=== PATIENT | male | born 2000 | race Hispanic/Latino ===

== ENCOUNTER 2020-07-24 17:24 | Inpatient (IN) | payer OTHER ==
[~2020-07-24] VITALS: Ht 167.6 cm; Wt 70.1 kg
[2020-07-24 19:14] LABS: HEMATOCRIT 47.7 % (42.0-52.0); HEMOGLOBIN 15.6 g/dl (13.5-17.5); MEAN CORPUSCULAR HEMOGLOBIN 30.4 pg (27.0-33.0); MEAN CORPUSCULAR HGB CONC 32.7 g/dl (32.0-36.5); PLATELET COUNT, AUTOMATED 346 10^3/uL (150-450); RED BLOOD COUNT 5.13 10^6/uL (4.30-6.10); WHITE BLOOD COUNT 7.2 10^3/uL (4.0-10.0)
[2020-07-24] MEDS ORDERED: LORazepam 1 MG TAB PO STA (19:29)
[2020-07-24 19:50] LABS: ACETAMINOPHEN LEVEL < 2.0 UG/ML (10.0-30.0); ALBUMIN 4.6 GM/DL (3.2-5.2); ALT/SGPT 48 U/L (12-78); AMPHETAMINES LEVEL URINE POSITIVE (NEGATIVE); BARBITURATES URINE NEGATIVE (NEGATIVE); BENZODIAZEPINES URINE NEGATIVE (NEGATIVE); BILIRUBIN,DIRECT 0.2 MG/DL (0.0-0.2); BILIRUBIN,TOTAL 0.6 MG/DL (0.2-1.0); BLOOD UREA NITROGEN 14 MG/DL (7-18); CALCIUM LEVEL 9.6 MG/DL (8.5-10.1); CANNABINOIDS URINE POSITIVE (NEGATIVE); CARBON DIOXIDE LEVEL 25 MEQ/L (21-32); CHLORIDE LEVEL 104 MEQ/L (98-107); COCAINE METABOLITE URINE NEGATIVE (NEGATIVE); CREATININE FOR GFR 0.98 MG/DL (0.70-1.30); ETHYL ALCOHOL (ETHANOL) < 0.003 % (0.000-0.010); GLUCOSE, FASTING 88 MG/DL (70-100); METHADONE URINE NEGATIVE (NEGATIVE); OPIATES URINE NEGATIVE (NEGATIVE); PHENCYCLIDINE URINE NEGATIVE (NEGATIVE); POTASSIUM SERUM 4.3 MEQ/L (3.5-5.1); SALICYLATE LEVEL 2.1 MG/DL (5.0-30.0); SODIUM LEVEL 138 MEQ/L (136-145)
--- NOTE | 2020-07-24 20:49 | REPVR ---
PROCEDURE INFORMATION: Exam: CT Head Without Contrast Exam date and time: 07/24/2020 8:25 PM Age: 19 years old Clinical indication: Psychosis or psychotic disorder; Unspecified; Additional info: New onset psychosis TECHNIQUE: Imaging protocol: Computed tomography of the head without contrast. Axial and coronal reformatted images were created and reviewed. Radiation optimization: All CT scans at this facility use at least one of these dose optimization techniques: automated exposure control; mA and/or kV adjustment per patient size (includes targeted exams where dose is matched to clinical indication); or iterative reconstruction. COMPARISON: No relevant prior studies available. FINDINGS: Brain: No CT evidence of acute intracranial hemorrhage or acute territorial infarction. No significant mass effect or midline shift. Basal cisterns patent. Cerebral ventricles: Normal in size and configuration. Bones/joints: No acute osseous abnormality. Paranasal sinuses: Unremarkable. No fluid levels. Mastoid air cells: Grossly unremarkable. Soft tissues: Grossly unremarkable. IMPRESSION: No CT evidence of acute intracranial pathology. Electronically signed by: Sixto Angeles On 07/24/2020 20:50:23 PM
--- NOTE | 2020-07-25 07:30 | ECGEPIP ---
[facility] - ED Test Date: 2020-07-24 Pat Name: Carlyle Aguilar Department: Room: - Gender: Male Advice Clerk: VALERIEV : 2000 Requested By: JAN Gan Order Number: [id number] Reading MD: Maurilio Hart Measurements Intervals Hartly Rate: 57 P: 69 TX: 148 QRS: 81 QRSD: 102 T: 60 QT: 412 QTc: 401 Interpretive Statements Sinus bradycardia with sinus arrhythmia BENIGN EARLY REPOLARIZATION NO PRIORS FOR COMPARISON Electronically Signed on 07-25-2020 7:29:55 EST by Maurilio Hart
[2020-07-25 14:57] LABS: RSV AMPLIFICATION NEGATIVE (NEGATIVE)
[2020-07-25] MEDS ORDERED: MAALOX 30 ML SUSP *UDC PO PRN (18:05)
[2020-07-25] MEDS ORDERED: ACETAMINOPHEN TAB 650MG DOSE (2X325MG) PO PRN (18:05)
[2020-07-25 23:46] VITALS: BP 137/80
[2020-07-26 06:43] VITALS: BP 130/60
--- NOTE | 2020-07-26 10:42 | MHHPEPDOC ---
General Date Of Admission: Jul 26, 2020 Legal Status: 9.39 Chief Complaint People in my company or traumatic kill me " History of Present Illness HISTORY OF THE PRESENT ILLNESS: Patient is a 19 -year-old , male, * Pt reports that he went AWOL from the on Saturday but turned himself in today and asked to be transported to the ED for a MHE. Pt reports that his mom believes him to have paranoid schizophrenia and she was diagnosed with schizophrenia as a child. Pt reports that he was charged with sexual assault and underage drinking by the but reports that he didn't do anything wrong, but this is why he went AWOL. Pt reports that everyone is trying to jump me or kill me. Pt reports that he has had thoughts of suicide as recently as last week and has trouble sleeping because he fears everyone is out to get him. Pt was tearful and repeatedly reported that he felt like everyone is "trying to fuck with me, I feel targeted." Pt reports that when he was called back for formation after being released for the day, he felt that "something was going to happen." When asked what he thought would happen, Pt reported that he thought his company was going to jump him. Pt denies HI/Self Injury and AH/VH. Pt currently denies SI but is very paranoid. He states his company is trying to kill him. He went AWOL because "they were trying to do. 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 He states people are talking behind his back. He states he feels uneasy and weird. He states when they picked him up after AWOL. He thought they were going to hit him. He has charges of desertion and sexual assault underage drinking. He has never been hospitalized. He has never been on any psychiatric medications. He has never seen a psychiatrist. He states he worked in [place] in [employer] and that company kept him but they always "thought I was tripping". He states he hears weird noises, electronic sounds. Denies any thought insertion, ideas of reference, but states "people can read my mind." He states his father had anxiety and has trouble being around people and his mother has schizophrenia. His legal history is negative. His medical history is negative. Surgical history is negative. His neurological history is negative. He is single and he doesn't want to go back to [facility]. He wants to go to [place]. Psychiatric Review of Systems Depression (2 or more weeks): denies Mala (4 or more days of): denies Psychosis: paranoia PTSD: denies Anxiety: situational anxiety Anxiety/ 6 months or more of: other Past Psychiatric History Previous Psychiatric Diagnosis: None. Previous Psychiatric Admissions: None. Suicide Attempts: None. Psychiatric Follow-up: No follow-up. Psychiatric medications:none. Past Medical History Medical Problems No medical problem Head Injury: No Seizures: No Hospitalizations: No Surgeries: No Family Medical/Psychiatric HX Psychiatric Disorders: Yes Addiction: No Suicide Attemps/Completions: No Addiction History denies Social History Childhood: No information at this time. Abuse/Trauma:. No information at this time. Current Living Situation:. [place]. Education: High school. 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 Social Support:. Has a brother in [place]. Legal: As legal difficulties now with [employer]. Marital:, Single. Mental Status Examination General Appearance: personal clothing Build: average Demeanor: mistrustful Eye Contact: poor Activity: average Behavior: cooperative Speech: normal volume, reg/rate,rhythm,volume Mood: euthymic Mood euthymic Affect: constricted Thought Process: intact Thought Content (Delusions): paranoia Thought Content (Other): appears paranoid Thought Content (Aggressive): none reported Perception (Hallucinations): none reported Perception (Other): none reported Cognition (Impairment of): none reported Cognition(Intelligence Est.): average Oriented: Awake, Oriented times three Insight: poor Judgment: Poor Psychosis: Psychotic Perceptions Diagnoses Stressors of [employer] life, Rule out Paranoia A-FIB/CHADSVASC A-FIB History Current/History of A-Fib/PAF?: No Current PO Anticoag Therapy: No Age/Risk Factor Scoring CHADSVASC: CHADSVASC Response (Comments) Value Age Risk Factor Age < 65 years old 0 Gender Risk Factor Male 0 Hx of CHF No 0 Hx of HTN No 0 Hx of Stroke/TIA/or VTE No 0 Hx of Diabetes No 0 Hx of Vascular Disease No 0 Total 0 Treatment Treatment ordered: NONE Initial Treatment Plan 1. Patient was admitted on a [9.39] status. 2. Complete history was obtained. 3. With patients permission, family will be contacted and database will be e xpanded. 4. Patients medication regimen will be reviewed and changed accordingly. 5. Patient will be provided with protected environment. 6. Patient will be treated with individual, group, and milieu therapies. 7. Patient will receive supportive psych-education. 8. Discharge planning will commence immediately. 9. Outpatient follow-up treatment will be strongly recommended. 10. The initial treatment plan will focus initially on: * Depression. * Risk for suicide. ESTIMATED LENGTH OF STAY: - DAYS. TIME SPENT COUNSELING AND COORDINATING INITIAL CARE: minutes. N/A-No Antipsychotics Vital Signs Vital Signs Date Time Temp Pulse Resp B/P (MAP) Pulse Ox O2 Delivery O2 Flow Rate FiO2 07/26/20 06:43 98.5 52 14 130/60 (83) 99 Room Air Laboratory Data 24H Labs Laboratory Tests 2 07/25/20 13:55: Coronavirus (COVID-19)(PCR) NEGATIVE, Influenza Type A (RT-PCR) NEGATIVE, Influenza Type B (RT-PCR) NEGATIVE, Respiratory Syncytial Virus (PCR) NEGATIVE Medications No Active Prescriptions or Reported Meds Allergies Coded Allergies: No Known Allergies (Unverified , 07/24/20) COLEEN NINO MD Jul 26, 2020 10:42
[2020-07-26 17:36] VITALS: BP 143/80
--- NOTE | 2020-07-26 19:18 | HPEPDOC ---
General Date of Admission Jul 25, 2020 at 18:03 Date of Service: Jul 26, 2020 Chief Complaint The patient is a 19-year-old male admitted with a reason for visit of Unspecified Depression. Source: Patient Exam Limitations: No limitations History of Present Illness Patient is 19 years old male without past medical history presented to the hospital with paranoid ideation and suicidal thoughts. Patient is on service and stated that he believes that everyone tried to kill him. Of note his mom was diagnosed with paranoid schizophrenia. He has never seen a psychiatrist. He states he worked in [employer] in [place] and that company kept him but they always "thought I was tripping". He states he hears weird noises, electronic sounds. During my interview patient denied any shortness of breath, fever, chills, nausea, vomiting, diarrhea or dysuria . Home Medications No Active Prescriptions or Reported Meds Allergies Coded Allergies: No Known Allergies (Unverified , 07/24/20) Past Medical History Medical History None Family History Mother has paranoid schizophrenia Social History * Smoker: current smoker Alcohol: occationally Drugs: denies A-FIB/CHADSVASC A-FIB History Current/History of A-Fib/PAF?: No Current PO Anticoag Therapy: No Review of Systems Constitutional: Denies: Chills Eyes: Denies: Pain ENT: Denies: Head Aches Pulmonary: Denies: Dyspnea, Cough Cardiovascular: Denies: Chest Pain Gastrointestinal: Denies: Nausea, Vomiting Genitourinary: Denies: Dysuria Hematologic: Denies: Bruising Endocrine: Denies: Polydipsia Musculoskeletal: Denies: Neck Pain Neurological: Denies: Weakness Psych: Reports: Anxiety Physical Examination General Exam: Positive: Alert, Cooperative Eye Exam: Positive: PERRLA ENT Exam: Positive: Atraumatic Neck Exam: Positive: Supple; Negative: JVD Chest Exam: Positive: Clear to auscultation Heart Exam: Positive: Rate Normal Telemetry: Positive: No significant arrhythmia Abdomen Exam: Positive: Normal bowel sounds Extremity Exam: Negative: Clubbing Skin Exam: Positive: Nl turgor and temperature Neuro Exam: Positive: Strength at 5/5 X4 ext Psych Exam: Positive: Oriented x 3 Vital Signs Vital Signs Date Time Temp Pulse Resp B/P (MAP) Pulse Ox O2 Delivery O2 Flow Rate FiO2 3/9/21 17:36 98.9 53 16 143/80 (101) 07/26/20 11:11 Room Air 07/26/20 06:43 99 Assessment/Plan Patient is 19 years old male without past medical history presented to the hospital with paranoid ideation and suicidal thoughts. Patient is on service and stated that he believes that everyone tried to kill him. Of note his mom was diagnosed with paranoid schizophrenia. He has never seen a psychiatrist. He states he worked in [employer] in [place] and that company kept him but they always "thought I was tripping". He states he hears weird noises, electronic sounds. During my interview patient denied any shortness of breath, fever, chills, nausea, vomiting, diarrhea or dysuria . Problems (1) Paranoia Status: Acute Problem Text: will defer treatment to psych team Plan / VTE VTE Prophylaxis Ordered?: No VTE Exclusion Mechanical Proph: Low Risk for VTE RAY PETTIT DO Jul 26, 2020 19:18
--- NOTE | 2020-07-27 07:49 | MHIPNPDOC ---
[facility] Progress Note Progress Note DATE OF SERVICE: 07/27/20 HISTORY: * Pt reports that he went AWOL from the on Saturday but turned himself in today and asked to be transported to the ED for a MHE. Pt reports that his mom believes him to have paranoid schizophrenia and she was diagnosed with schizophrenia as a child. Pt reports that he was charged with sexual assault and underage drinking by the but reports that he didn't do anything wrong, but this is why he went AWOL. Pt reports that everyone is trying to jump me or kill me. Pt reports that he has had thoughts of suicide as recently as last week and has trouble sleeping because he fears everyone is out to get him. Pt was tearful and repeatedly reported that he felt like everyone is "trying to fuck with me, I feel targeted." Pt reports that when he was called back for formation after being released for the day, he felt that "something was going to happen." When asked what he thought would happen, Pt reported that he thought his company was going to jump him. Pt denies HI/Self Injury and AH/VH. Pt currently denies SI but is very paranoid. He states his company is trying to kill him. He went AWOL because "they were trying to do. 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 He states people are talking behind his back. He states he feels uneasy and weird. He states when they picked him up after AWOL. He thought they were going to hit him. He has charges of desertion and sexual assault underage drinking. He has never been hospitalized. He has never been on any psychiatric medications. He has never seen a psychiatrist. He states he worked in [place] in [facility] and that company kept him but they always "thought I was tripping". He states he hears weird noises, electronic sounds. Denies any thought insertion, ideas of reference, but states "people can read my mind." He states his father had anxiety and has trouble being around people and his mother has schizophrenia. His legal history is negative. His medical history is negative. Surgical history is negative. His neurological history is negative. He is single and he doesn't want to go back to [facility]. He wants to go to [employer]. 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 His eye contact is poor. His speech is quiet and mumbling. He does not socialize with other patients. VITAL SIGNS: See below. NEW TEST RESULTS: None. CURRENT MEDICATIONS: See below. MENTAL STATUS EXAMINATION: Patient is a 19-year old male, who is in the midst of great difficulties with the [employer], including 2 episodes of AWOL and additional charges against him. Speech: Is, quiet mumbling. Language skills are essentially intact. Thought processes including: Fear of fellow servicemen and command. Thought content: As above. Abstract reasoning, and computation:, Poor. Description of associations:, No loose association. Description of abnormal or psychotic thoughts:. Dominated by fear and what appears to be paranoia. Judgment:, Poor. Insight:, Poor. Orientation: 3. Recent and remote memory: Intact. Attention span and concentration: Intact. Language:. No gross disturbance. Fund of knowledge: Reasonable. Mood: Fearful, sad. Affect:, Downcast. DIAGNOSES: 1. Depression. 2., Paranoia disorder. 3.. Stressors. ASSESSMENT: As above MANAGEMENT PLAN: Plan to give medication at this time. TIME SPENT: 35 minutes. Vital Signs Vital Signs Date Time Temp Pulse Resp B/P (MAP) Pulse Ox O2 Delivery O2 Flow Rate FiO2 07/26/20 17:36 98.9 53 16 143/80 (101) 07/26/20 11:11 Room Air 07/26/20 06:43 99 Current Medications Current Medications Medications (Trade) Dose Ordered Sig/Catracho Route PRN Reason Start Time Stop Time Status Last Admin Dose Admin Acetaminophen (Tylenol Tab) 650 mg Q6HP PRN PO HEADACHE or DISCOMFORT 07/25/20 18:05 Al Hydrox/Mg Hydrox/Simethicone (Mylanta) 30 ml Q4HP PRN PO HEARTBURN/INDIGESTION 07/25/20 18:05 Home Med (Med Rec Complete!) ASDIRECTED XX 07/25/20 13:15 07/25/20 13:13 DC Lorazepam (Ativan) 1 mg STAT STAT PO 07/24/20 19:29 07/24/20 19:30 DC 07/24/20 19:46 Magnesium Hydroxide (Milk Of Magnesia) 30 ml DAILYPRN PRN PO CONSTIPATION 07/25/20 18:05 Nicotine (Nicorette) 2 mg Q4HP PRN PO NICOTINE WITHDRAWAL 07/26/20 11:30 Trazodone HCl (Desyrel) 50 mg QHSP PRN PO INSOMNIA 07/25/20 18:05 Allergies Coded Allergies: No Known Allergies (Unverified , 07/24/20) COLEEN NINO MD Jul 27, 2020 07:48
--- NOTE | 2020-07-27 13:22 | MHIPNPDOC ---
[facility] Progress Note Progress Note DATE OF SERVICE: 07/27/20 History: * Pt reports that he went AWOL from the on Saturday but turned himself in today and asked to be transported to the ED for a MHE. Pt reports that his mom believes him to have paranoid schizophrenia and she was diagnosed with schizophrenia as a child. Pt reports that he was charged with sexual assault and underage drinking by the but reports that he didn't do anything wrong, but this is why he went AWOL. Pt reports that everyone is trying to jump me or kill me. Pt reports that he has had thoughts of suicide as recently as last week and has trouble sleeping because he fears everyone is out to get him. Pt was tearful and repeatedly reported that he felt like everyone is "trying to fuck with me, I feel targeted." Pt reports that when he was called back for formation after being released for the day, he felt that "something was going to happen." When asked what he thought would happen, Pt reported that he thought his company was going to jump him. Pt denies HI/Self Injury and AH/VH. Pt currently denies SI but is very paranoid Further discussions with patient and family reveal a l0ong history of parano ia prior to joining [email or web address]. apparently this was his pattern in [facility] with much fear and suspicion. 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 VITAL SIGNS: See below. NEW TEST RESULTS: None. CURRENT MEDICATIONS: See below. MENTAL STATUS EXAMINATION: Patient is a 19-year old male, who is, expressing significant paranoid thoughts without hallucinations. Speech: Is quiet, soft. Language skills are intact. Thought processes including:. His fear and inability to be around people. Thought content: As above. Abstract reasoning, and computation:. Poor abstraction. Description of associations:. No loose association. Description of abnormal or psychotic thoughts:. Significant paranoid thought. Judgment: Poor. Insight: poor. Orientation: 3. Recent and remote memory:. Intact. Attention span and concentration: Poor. Language:. No gross disturbance. Fund of knowledge: Limited. Mood:, Sad. Affect: downcast. DIAGNOSES: 1. Paranoid disorder. . . ASSESSMENT: Will begin treating for paranoia MANAGEMENT PLAN: As above. TIME SPENT: 35 minutes. Vital Signs Vital Signs Date Time Temp Pulse Resp B/P (MAP) Pulse Ox O2 Delivery O2 Flow Rate FiO2 07/26/20 17:36 98.9 53 16 143/80 (101) 07/26/20 11:11 Room Air 07/26/20 06:43 99 Current Medications Current Medications Medications (Trade) Dose Ordered Sig/Catracho Route PRN Reason Start Time Stop Time Status Last Admin Dose Admin Acetaminophen (Tylenol Tab) 650 mg Q6HP PRN PO HEADACHE or DISCOMFORT 07/25/20 18:05 Al Hydrox/Mg Hydrox/Simethicone (Mylanta) 30 ml Q4HP PRN PO HEARTBURN/INDIGESTION 07/25/20 18:05 Home Med (Med Rec Complete!) ASDIRECTED XX 07/25/20 13:15 07/25/20 13:13 DC Lorazepam (Ativan) 1 mg STAT STAT PO 07/24/20 19:29 07/24/20 19:30 DC 07/24/20 19:46 Magnesium Hydroxide (Milk Of Magnesia) 30 ml DAILYPRN PRN PO CONSTIPATION 07/25/20 18:05 Nicotine (Nicorette) 2 mg Q4HP PRN PO NICOTINE WITHDRAWAL 07/26/20 11:30 Olanzapine (ZyPREXA) 5 mg QHS PO 07/27/20 21:00 Trazodone HCl (Desyrel) 50 mg QHSP PRN PO INSOMNIA 07/25/20 18:05 Allergies Coded Allergies: No Known Allergies (Unverified , 07/24/20) COLEEN NINO MD Jul 27, 2020 13:21
[2020-07-27 17:52] VITALS: BP 130/83
[2020-07-27] MEDS ORDERED: OLANZapine 5 MG TAB PO SCH (21:00)
[2020-07-28 06:22] VITALS: BP 102/59
--- NOTE | 2020-07-28 15:03 | MHIPNPDOC ---
[facility] Progress Note Progress Note DATE OF SERVICE: 07/28/20 HISTORY: 19-year-old male with significant paranoia and inability to socialize. Had significant legal difficulties attempting to go AWOL. VITAL SIGNS: See below. NEW TEST RESULTS: None. CURRENT MEDICATIONS: See below. MENTAL STATUS EXAMINATION: Patient is a 19-year old male, who is dealing with significant lifelong paranoia. Speech: Is, quiet. Language skills are. No gross disturbance. Thought processes including: Fear of going back to his unit at the [facility] in ability to join group. bored Thought content: As above, poor. Abstraction. Abstract reasoning, and com putation: Poor. Abstraction. Description of associations:. No loose associations. Description of abnormal or psychotic thoughts: Abnormal paranoid thinking. Judgment:, Poor. Insight:, Poor. Orientation: 3. Recent and remote memory: Intact. Attention span and concentration: Intact. Language: No gross disturbance. Fund of knowledge:, Poor. Mood: Low. Affect: Congruent. DIAGNOSES: 1.. Paranoid disorder. 2. 3. ASSESSMENT: Continued see if medication will be of some use MANAGEMENT PLAN: As above. TIME SPENT: 35 minutes. Vital Signs Vital Signs Date Time Temp Pulse Resp B/P (MAP) Pulse Ox O2 Delivery O2 Flow Rate FiO2 07/28/20 06:22 98.4 50 16 102/59 (73) 100 Room Air Current Medications Current Medications Medications (Trade) Dose Ordered Sig/Catracho Route PRN Reason Start Time Stop Time Status Last Admin Dose Admin Acetaminophen (Tylenol Tab) 650 mg Q6HP PRN PO HEADACHE or DISCOMFORT 07/25/20 18:05 Al Hydrox/Mg Hydrox/Simethicone (Mylanta) 30 ml Q4HP PRN PO HEARTBURN/INDIGESTION 07/25/20 18:05 Home Med (Med Rec Complete!) ASDIRECTED XX 07/25/20 13:15 07/25/20 13:13 DC Lorazepam (Ativan) 1 mg STAT STAT PO 07/24/20 19:29 07/24/20 19:30 DC 07/24/20 19:46 Magnesium Hydroxide (Milk Of Magnesia) 30 ml DAILYPRN PRN PO CONSTIPATION 07/25/20 18:05 Nicotine (Nicorette) 2 mg Q4HP PRN PO NICOTINE WITHDRAWAL 07/26/20 11:30 Olanzapine (ZyPREXA) 5 mg QHS PO 07/27/20 21:00 07/28/20 09:31 DC 07/27/20 21:36 Olanzapine (ZyPREXA) 10 mg QHS PO 07/28/20 21:00 Trazodone HCl (Desyrel) 50 mg QHSP PRN PO INSOMNIA 07/25/20 18:05 Allergies Coded Allergies: No Known Allergies (Unverified , 07/24/20) COLEEN NINO MD Jul 28, 2020 15:03
[2020-07-28 18:39] VITALS: BP 134/67
[2020-07-28] MEDS: OLANZapine 10 MG TAB PO SCH (20:15)
[2020-07-28] MEDS: traZODone 50 MG TAB PO PRN (20:15)
[2020-07-29 06:39] VITALS: BP 109/53
[2020-07-29] MEDS: OLANZapine 10 MG TAB PO SCH (20:32)
[2020-07-29] MEDS: traZODone 50 MG TAB PO PRN (20:32)
[2020-07-30 07:23] VITALS: BP 129/58
[2020-07-30] MEDS: NICOTINE POLACRILEX 2 MG GUM PO PRN ×2 (12:32→19:51)
--- NOTE | 2020-07-30 16:13 | MHIPNPDOC ---
[facility] Progress Note Progress Note DATE OF SERVICE: 07/30/20 HISTORY: 19-year-old male with significant paranoia now concerned that people on the unit don't like him. 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 VITAL SIGNS: See below. NEW TEST RESULTS: None. CURRENT MEDICATIONS: See below. MENTAL STATUS EXAMINATION: Patient is a 20-year old male, who is, suspicious. Speech: Is. No gross disturbance. Language skills are was disturbance. 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 Thought content: As above. Abstract reasoning, and computation:. Poor abstraction. Description of associations:. No loose associations. Description of abnormal or psychotic thoughts:. Psychotic thought abnormal thought as described. Judgment: Poor. Insight:, Poor. Orientation: 3. Recent and remote memory: Intact. Attention span and concentration: Intact. Language:. No gross disturbance. Fund of knowledge: Full. Mood: Sad. Affect: Downcast, nervous. DIAGNOSES: 1., Paranoid disorder. 2., Stressors of army life. 3. None. ASSESSMENT:, As above MANAGEMENT PLAN:, Continue antipsychotic medication. TIME SPENT:, 30 minutes. Vital Signs Vital Signs Date Time Temp Pulse Resp B/P (MAP) Pulse Ox O2 Delivery O2 Flow Rate FiO2 07/30/20 07:23 98.3 53 18 129/58 (81) 98 Room Air Current Medications Current Medications Medications (Trade) Dose Ordered Sig/Catracho Route PRN Reason Start Time Stop Time Status Last Admin Dose Admin Acetaminophen (Tylenol Tab) 650 mg Q6HP PRN PO HEADACHE or DISCOMFORT 07/25/20 18:05 Al Hydrox/Mg Hydrox/Simethicone (Mylanta) 30 ml Q4HP PRN PO HEARTBURN/INDIGESTION 07/25/20 18:05 Home Med (Med Rec Complete!) ASDIRECTED XX 07/25/20 13:15 07/25/20 13:13 DC Lorazepam (Ativan) 1 mg STAT STAT PO 07/24/20 19:29 07/24/20 19:30 DC 07/24/20 19:46 Magnesium Hydroxide (Milk Of Magnesia) 30 ml DAILYPRN PRN PO CONSTIPATION 07/25/20 18:05 Nicotine (Nicorette) 2 mg Q4HP PRN PO NICOTINE WITHDRAWAL 07/26/20 11:30 07/30/20 12:32 Olanzapine (ZyPREXA) 5 mg QHS PO 07/27/20 21:00 07/28/20 09:31 DC 07/27/20 21:36 Olanzapine (ZyPREXA) 10 mg QHS PO 07/28/20 21:00 07/29/20 20:32 Trazodone HCl (Desyrel) 50 mg QHSP PRN PO INSOMNIA 07/25/20 18:05 07/29/20 20:32 Allergies Coded Allergies: No Known Allergies (Unverified , 07/24/20) COLEEN NINO MD Jul 30, 2020 16:13
--- NOTE | 2020-07-30 17:13 | IPNPDOC ---
Text Note Date of Service The patient was seen on 07/30/20. NOTE Psych team called to the hospitalist service to evaluate patient. Patient complains of limited range of motion of his hands. On visual inspection fingers range of motion intact, skin intact. I did not recognize any pathological findings. Hand food counter worker appropriate. Range of motion of both Wrists, flexion and extension appropriate. Recommendation: Continue to monitor, please contact hospitalist service if patient continues to have the same symptoms. VS,Fishbone, I+O VS, Fishbone, I+O Vital Signs Date Time Temp Pulse Resp B/P (MAP) Pulse Ox O2 Delivery O2 Flow Rate FiO2 07/30/20 07:23 98.3 53 18 129/58 (81) 98 Room Air RAY PETTIT DO Jul 30, 2020 17:13
[2020-07-30 18:59] VITALS: BP 146/66
[2020-07-30] MEDS: OLANZapine 10 MG TAB PO SCH (19:49)
[2020-07-30] MEDS: traZODone 50 MG TAB PO PRN (19:50)
[2020-07-31 08:14] VITALS: BP 113/55
[2020-07-31 17:53] VITALS: BP 111/63
[2020-07-31] MEDS: NICOTINE POLACRILEX 2 MG GUM PO PRN (20:08)
[2020-07-31] MEDS: traZODone 50 MG TAB PO PRN (20:09)
[2020-07-31] MEDS: OLANZapine 10 MG TAB PO SCH (20:09)
[2020-08-01 06:54] VITALS: BP 118/56
--- NOTE | 2020-08-01 14:00 | MHIPNPDOC ---
[facility] Progress Note Progress Note DATE OF SERVICE: 08/01/20 HISTORY: 19-year-old male with significant legal problems with the [employer] and a long history of paranoia. VITAL SIGNS: See below. NEW TEST RESULTS: None. CURRENT MEDICATIONS: See below. MENTAL STATUS EXAMINATION: Patient is a 19-year old male, who is, presenting with significant paranoia, not only to the [employer], but also even here on the unit. He eats with no one and spends most of his time in his room. Speech: Is essentially intact. Language skills are essentially intact. Thought processes including:. No gross abnormality. Thought content: Feels medicine isn't helping him and that he is not noticing any difference. Abstract reasoning, and computation: Poor. Abstraction. Description of associations:. No loose association. Description of abnormal or psychotic thoughts: Significant paranoia . Judgment: Poor. Insight:, Limited. Orientation: 3. Recent and remote memory: Apparently intact. Attention span and concentration: Apparently intact. Language:. No gross disturbance. Fund of knowledge: Limited. Mood:. Dysthymic. Affect: Flat. DIAGNOSES: 1.. Paranoid disorder. 2. None. 3. None. ASSESSMENT: Continue treatment raising dose of this. Zyprexa MANAGEMENT PLAN: As above. TIME SPENT:, 30 minutes. Vital Signs Vital Signs Date Time Temp Pulse Resp B/P (MAP) Pulse Ox O2 Delivery O2 Flow Rate FiO2 08/01/20 06:54 97.6 62 14 118/56 (76) 96 Room Air Current Medications Current Medications Medications (Trade) Dose Ordered Sig/Catracho Route PRN Reason Start Time Stop Time Status Last Admin Dose Admin Acetaminophen (Tylenol Tab) 650 mg Q6HP PRN PO HEADACHE or DISCOMFORT 07/25/20 18:05 Al Hydrox/Mg Hydrox/Simethicone (Mylanta) 30 ml Q4HP PRN PO HEARTBURN/INDIGESTION 07/25/20 18:05 Home Med (Med Rec Complete!) ASDIRECTED XX 07/25/20 13:15 07/25/20 13:13 DC Lorazepam (Ativan) 1 mg STAT STAT PO 07/24/20 19:29 07/24/20 19:30 DC 07/24/20 19:46 Magnesium Hydroxide (Milk Of Magnesia) 30 ml DAILYPRN PRN PO CONSTIPATION 07/25/20 18:05 Nicotine (Nicorette) 2 mg Q4HP PRN PO NICOTINE WITHDRAWAL 07/26/20 11:30 07/31/20 20:08 Olanzapine (ZyPREXA) 5 mg QHS PO 07/27/20 21:00 07/28/20 09:31 DC 07/27/20 21:36 Olanzapine (ZyPREXA) 10 mg QHS PO 07/28/20 21:00 08/01/20 13:28 DC 07/31/20 20:09 Olanzapine (ZyPREXA) 15 mg QHS PO 08/01/20 21:00 Trazodone HCl (Desyrel) 50 mg QHSP PRN PO INSOMNIA 07/25/20 18:05 07/31/20 20:09 Allergies Coded Allergies: No Known Allergies (Unverified , 07/24/20) COLEEN NINO MD Aug 01, 2020 14:00
[2020-08-01 16:17] VITALS: BP 120/62
[2020-08-01] MEDS: traZODone 50 MG TAB PO PRN (20:11)
[2020-08-01] MEDS: OLANZapine 5 MG TAB PO SCH (20:12)
[2020-08-02 06:28] VITALS: BP 138/71
--- NOTE | 2020-08-02 07:18 | MHIPNPDOC ---
[facility] Progress Note Progress Note DATE OF SERVICE: 07/29/20 HISTORY: Long-term history of paranoia in this 19-year-old male also has gone AWOL a number of times. 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 He is not socializing. He is not eating dinner with other patients VITAL SIGNS: See below. NEW TEST RESULTS: None. CURRENT MEDICATIONS: See below. MENTAL STATUS EXAMINATION: Patient is a 19-year old male, who is quiet, soft-spoken, downcast, poor eye contact. Speech: Is, quiet , sparse. Language skills are. No gross disturbance. Thought processes including: Gross disturbance. Thought content: Continued suspicion and paranoia. Abstract reasoning, and computation:. Poor abstraction. Description of associations:. No loose association. Description of abnormal or psychotic thoughts:. Paranoid delusional thought. Judgment: Poor. Insight:, Poor. Orientation: 3. Recent and remote memory: Intact. Attention span and concentration: Intact. Language:. No gross disturbance. Fund of knowledge: Reasonable. Mood: Low. Affect:, Constricted. DIAGNOSES: 1.. Paranoid disorder. 2. None. 3. None. ASSESSMENT: As above. Poor prognosis for continued service in the [employer] MANAGEMENT PLAN:. Continue medication. TIME SPENT: 25 minutes. Vital Signs Vital Signs Date Time Temp Pulse Resp B/P (MAP) Pulse Ox O2 Delivery O2 Flow Rate FiO2 08/02/20 06:28 97.5 68 12 138/71 (93) 99 Room Air Current Medications Current Medications Medications (Trade) Dose Ordered Sig/Catracho Route PRN Reason Start Time Stop Time Status Last Admin Dose Admin Acetaminophen (Tylenol Tab) 650 mg Q6HP PRN PO HEADACHE or DISCOMFORT 07/25/20 18:05 Al Hydrox/Mg Hydrox/Simethicone (Mylanta) 30 ml Q4HP PRN PO HEARTBURN/INDIGESTION 07/25/20 18:05 Home Med (Med Rec Complete!) ASDIRECTED XX 07/25/20 13:15 07/25/20 13:13 DC Lorazepam (Ativan) 1 mg STAT STAT PO 07/24/20 19:29 07/24/20 19:30 DC 07/24/20 19:46 Magnesium Hydroxide (Milk Of Magnesia) 30 ml DAILYPRN PRN PO CONSTIPATION 07/25/20 18:05 Nicotine (Nicorette) 2 mg Q4HP PRN PO NICOTINE WITHDRAWAL 07/26/20 11:30 07/31/20 20:08 Olanzapine (ZyPREXA) 5 mg QHS PO 07/27/20 21:00 07/28/20 09:31 DC 07/27/20 21:36 Olanzapine (ZyPREXA) 10 mg QHS PO 07/28/20 21:00 08/01/20 13:28 DC 07/31/20 20:09 Olanzapine (ZyPREXA) 15 mg QHS PO 08/01/20 21:00 08/01/20 20:12 Trazodone HCl (Desyrel) 50 mg QHSP PRN PO INSOMNIA 07/25/20 18:05 08/01/20 20:11 Allergies Coded Allergies: No Known Allergies (Unverified , 07/24/20) COLEEN NINO MD Aug 02, 2020 07:18
--- NOTE | 2020-08-02 14:26 | MHIPNPDOC ---
[facility] Progress Note Progress Note DATE OF SERVICE: 07/29/20 HISTORY: 19-year-old male with significant history of paranoia presently struggling with [employer] due to multiple AWOL.. VITAL SIGNS: See below. NEW TEST RESULTS: None. CURRENT MEDICATIONS: See below. MENTAL STATUS EXAMINATION: Patient is a 19-year old male, who is continues significantly suspicious. Speech: Is. No gross abnormality. Language skills are, no gross abnormality. Thought processes including:, Dominated by paranoia. Thought content:, Suspicion, people talking about him or talking where he can hear. Abstract reasoning, and computation: Poor. Description of associations:. No loose association. Description of abnormal or psychotic thoughts:as above Judgment: Poor. Insight:, Limited. Orientation: 3. Recent and remote memory: Intact. Attention span and concentration: Distracted by his suspicious feelings. Language:. No gross abnormality. Fund of knowledge:, Limited. Mood: Euthymic suspicious. Affect:, Congruent. DIAGNOSES: 1. Paranoid disorder. 2. None. 3. None. ASSESSMENT: As above MANAGEMENT PLAN:. Continue medication observation and discussion with linda morales. TIME SPENT: 30 minutes. Vital Signs Vital Signs Date Time Temp Pulse Resp B/P (MAP) Pulse Ox O2 Delivery O2 Flow Rate FiO2 08/02/20 06:28 97.5 68 12 138/71 (93) 99 Room Air Current Medications Current Medications Medications (Trade) Dose Ordered Sig/Catracho Route PRN Reason Start Time Stop Time Status Last Admin Dose Admin Acetaminophen (Tylenol Tab) 650 mg Q6HP PRN PO HEADACHE or DISCOMFORT 07/25/20 18:05 Al Hydrox/Mg Hydrox/Simethicone (Mylanta) 30 ml Q4HP PRN PO HEARTBURN/INDIGESTION 07/25/20 18:05 Home Med (Med Rec Complete!) ASDIRECTED XX 07/25/20 13:15 07/25/20 13:13 DC Lorazepam (Ativan) 1 mg STAT STAT PO 07/24/20 19:29 07/24/20 19:30 DC 07/24/20 19:46 Magnesium Hydroxide (Milk Of Magnesia) 30 ml DAILYPRN PRN PO CONSTIPATION 07/25/20 18:05 Nicotine (Nicorette) 2 mg Q4HP PRN PO NICOTINE WITHDRAWAL 07/26/20 11:30 07/31/20 20:08 Olanzapine (ZyPREXA) 5 mg QHS PO 07/27/20 21:00 07/28/20 09:31 DC 07/27/20 21:36 Olanzapine (ZyPREXA) 10 mg QHS PO 07/28/20 21:00 08/01/20 13:28 DC 07/31/20 20:09 Olanzapine (ZyPREXA) 15 mg QHS PO 08/01/20 21:00 08/01/20 20:12 Trazodone HCl (Desyrel) 50 mg QHSP PRN PO INSOMNIA 07/25/20 18:05 08/01/20 20:11 Allergies Coded Allergies: No Known Allergies (Unverified , 07/24/20) COLEEN NINO MD Aug 02, 2020 14:26
[2020-08-02 16:39] VITALS: BP 102/60
[2020-08-02] MEDS: traZODone 50 MG TAB PO PRN (20:18)
[2020-08-02] MEDS: OLANZapine 5 MG TAB PO SCH (20:18)
[2020-08-03 06:20] VITALS: BP 118/53
[2020-08-03] MEDS: NICOTINE POLACRILEX 2 MG GUM PO PRN ×2 (11:06→20:35)
--- NOTE | 2020-08-03 11:56 | MHIPNPDOC ---
[facility] Progress Note Progress Note DATE OF SERVICE: 08/03/20 HISTORY: Long history of paranoia, worsening in the [employer]. Uncomfortable with his unit and now uncomfortable on our hospital floor. VITAL SIGNS: See below. NEW TEST RESULTS:, None. CURRENT MEDICATIONS: See below. MENTAL STATUS EXAMINATION: Patient is a 19-year old male, who is quiet and seclusive. Speech: Is, quiet mumbling. Language skills are, limited. Thought processes including: People or talking, knowing that he can hear them and feeling threatened by his unit. Thought content: As above. Abstract reasoning, and computation:. Poor abstract reasoning. Description of associations:, Loose associations, not present. Description of abnormal or psychotic thoughts: Extensive paranoid thoughts without hallucinations. Judgment:, Poor. Insight:, Limited. Orientation: 3. Recent and remote memory: Intact. Attention span and concentration: Intact. Language:. No gross disturbance. Fund of knowledge: Reasonable. Mood: Euthymic. Affect:, Flat. DIAGNOSES: 1. Paranoid disorder. 2. None. 3. None. ASSESSMENT: Significant. Paranoid disorder affecting this young man's functioning MANAGEMENT PLAN:. Continue to manage medication. Continue to communicate with chain of command. TIME SPENT: 20 minutes. Vital Signs Vital Signs Date Time Temp Pulse Resp B/P (MAP) Pulse Ox O2 Delivery O2 Flow Rate FiO2 08/03/20 06:20 97.6 60 16 118/53 (74) 99 Room Air Current Medications Current Medications Medications (Trade) Dose Ordered Sig/Catracho Route PRN Reason Start Time Stop Time Status Last Admin Dose Admin Acetaminophen (Tylenol Tab) 650 mg Q6HP PRN PO HEADACHE or DISCOMFORT 07/25/20 18:05 Al Hydrox/Mg Hydrox/Simethicone (Mylanta) 30 ml Q4HP PRN PO HEARTBURN/INDIGESTION 07/25/20 18:05 Home Med (Med Rec Complete!) ASDIRECTED XX 07/25/20 13:15 07/25/20 13:13 DC Lorazepam (Ativan) 1 mg STAT STAT PO 07/24/20 19:29 07/24/20 19:30 DC 07/24/20 19:46 Magnesium Hydroxide (Milk Of Magnesia) 30 ml DAILYPRN PRN PO CONSTIPATION 07/25/20 18:05 Nicotine (Nicorette) 2 mg Q4HP PRN PO NICOTINE WITHDRAWAL 07/26/20 11:30 08/03/20 11:06 Olanzapine (ZyPREXA) 5 mg QHS PO 07/27/20 21:00 07/28/20 09:31 DC 07/27/20 21:36 Olanzapine (ZyPREXA) 10 mg QHS PO 07/28/20 21:00 08/01/20 13:28 DC 07/31/20 20:09 Olanzapine (ZyPREXA) 15 mg QHS PO 08/01/20 21:00 08/02/20 20:18 Trazodone HCl (Desyrel) 50 mg QHSP PRN PO INSOMNIA 07/25/20 18:05 08/02/20 20:18 Allergies Coded Allergies: No Known Allergies (Unverified , 07/24/20) COLEEN NINO MD Aug 03, 2020 11:56
[2020-08-03 16:29] VITALS: BP 136/70
[2020-08-03] MEDS: traZODone 50 MG TAB PO PRN (20:35)
[2020-08-03] MEDS: OLANZapine 10 MG TAB PO SCH (20:35)
[2020-08-04 06:01] VITALS: BP 125/61
--- NOTE | 2020-08-04 16:56 | MHIPNPDOC ---
[facility] Progress Note Progress Note DATE OF SERVICE: 08/04/20 HISTORY: Paranoia in this 19-year-old male unremitting. VITAL SIGNS: See below. NEW TEST RESULTS: None. CURRENT MEDICATIONS: See below. MENTAL STATUS EXAMINATION: Patient is a 19-year old male, who is continues isolated and suspicious. Speech: Is. No gross disturbance. Language skills are. No gross disturbance. Thought processes including: Continued paranoia, fear that people are laughing here and talking about him. Thought content:. As above. poor Abstract reasoning, . Description of associations: No loose association. Description of abnormal or psychotic thoughts: Psychotic thought. People talking about him and laughing at him Judgment:. Poor. Insight: Limited. Orientation: 3. Recent and remote memory: Intact. Attention span and concentration: Intact. Language:. No disturbance. Fund of knowledge: Reasonable. Mood: Neutral. Affect:, Flat. DIAGNOSES: 1. Paranoid disorder. 2., Stressors of army life. 3. None. ASSESSMENT:, As above MANAGEMENT PLAN: Will consult with [facility] tomorrow. TIME SPENT: 20 minutes. Vital Signs Vital Signs Date Time Temp Pulse Resp B/P (MAP) Pulse Ox O2 Delivery O2 Flow Rate FiO2 08/04/20 06:01 99.2 60 16 125/61 (82) 100 Room Air Current Medications Current Medications Medications (Trade) Dose Ordered Sig/Catracho Route PRN Reason Start Time Stop Time Status Last Admin Dose Admin Acetaminophen (Tylenol Tab) 650 mg Q6HP PRN PO HEADACHE or DISCOMFORT 07/25/20 18:05 Al Hydrox/Mg Hydrox/Simethicone (Mylanta) 30 ml Q4HP PRN PO HEARTBURN/INDIGESTION 07/25/20 18:05 Home Med (Med Rec Complete!) ASDIRECTED XX 07/25/20 13:15 07/25/20 13:13 DC Lorazepam (Ativan) 1 mg STAT STAT PO 07/24/20 19:29 07/24/20 19:30 DC 07/24/20 19:46 Magnesium Hydroxide (Milk Of Magnesia) 30 ml DAILYPRN PRN PO CONSTIPATION 07/25/20 18:05 Nicotine (Nicorette) 2 mg Q4HP PRN PO NICOTINE WITHDRAWAL 07/26/20 11:30 08/03/20 20:35 Olanzapine (ZyPREXA) 5 mg QHS PO 07/27/20 21:00 07/28/20 09:31 DC 07/27/20 21:36 Olanzapine (ZyPREXA) 10 mg QHS PO 07/28/20 21:00 08/01/20 13:28 DC 07/31/20 20:09 Olanzapine (ZyPREXA) 15 mg QHS PO 08/01/20 21:00 08/03/20 11:57 DC 08/02/20 20:18 Olanzapine (ZyPREXA) 20 mg QHS PO 08/03/20 21:00 08/03/20 20:35 Trazodone HCl (Desyrel) 50 mg QHSP PRN PO INSOMNIA 07/25/20 18:05 08/03/20 20:35 Allergies Coded Allergies: No Known Allergies (Unverified , 07/24/20) COLEEN NINO MD Aug 04, 2020 16:56
[2020-08-04 18:41] VITALS: BP 130/82
[2020-08-04] MEDS: traZODone 50 MG TAB PO PRN (20:25)
[2020-08-04] MEDS: OLANZapine 10 MG TAB PO SCH (20:26)
[2020-08-05 06:00] VITALS: BP 116/63
--- NOTE | 2020-08-05 08:49 | MHIPNPDOC ---
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 He stays in his room. He has been put on Zyprexa 20 mg with no apparent improvement. VITAL SIGNS: See below. NEW TEST RESULTS: None will be calling [facility] today for transfer. CURRENT MEDICATIONS: See below. MENTAL STATUS EXAMINATION: Patient is a 19-year old male, who is, quiet, seclusive, claims no improvement in his suspiciousness. Speech: Is quiet, slow. Language skills are. No gross disturbance. Thought processes including: Fears that people are laughing about him talking about him listening to him. Thought content: As above. Abstract reasoning, and computation:. Poor abstraction. Description of associations:. No loose associations. Description of abnormal or psychotic thoughts: Abnormal psychotic thought noted. Patient suspicious ofmen in his unit or talking about him listening to him laughing at him and he seeing the same here on our unit. Judgment: Poor. Insight:, Poor. Orientation: 3. Recent and remote memory: Intact. Attention span and concentration: Intact. Language: No gross disturbance. Fund of knowledge: Reasonable. Mood: Euthymic. Affect: Flat. DIAGNOSES: 1. Paranoid disorder. 2. Stressors of [employer] Life. 3. ASSESSMENT: As above MANAGEMENT PLAN:. calling [facility] today to have him sent there prior to going to [place]. TIME SPENT: 40 minutes. Vital Signs Vital Signs Date Time Temp Pulse Resp B/P (MAP) Pulse Ox O2 Delivery O2 Flow Rate FiO2 08/05/20 06:00 98.0 60 18 116/63 (80) 97 08/04/20 06:01 Room Air Current Medications Current Medications Medications (Trade) Dose Ordered Sig/Catracho Route PRN Reason Start Time Stop Time Status Last Admin Dose Admin Acetaminophen (Tylenol Tab) 650 mg Q6HP PRN PO HEADACHE or DISCOMFORT 07/25/20 18:05 Al Hydrox/Mg Hydrox/Simethicone (Mylanta) 30 ml Q4HP PRN PO HEARTBURN/INDIGESTION 07/25/20 18:05 Home Med (Med Rec Complete!) ASDIRECTED XX 07/25/20 13:15 07/25/20 13:13 DC Lorazepam (Ativan) 1 mg STAT STAT PO 07/24/20 19:29 07/24/20 19:30 DC 07/24/20 19:46 Magnesium Hydroxide (Milk Of Magnesia) 30 ml DAILYPRN PRN PO CONSTIPATION 07/25/20 18:05 Nicotine (Nicorette) 2 mg Q4HP PRN PO NICOTINE WITHDRAWAL 07/26/20 11:30 08/03/20 20:35 Olanzapine (ZyPREXA) 5 mg QHS PO 07/27/20 21:00 07/28/20 09:31 DC 07/27/20 21:36 Olanzapine (ZyPREXA) 10 mg QHS PO 07/28/20 21:00 08/01/20 13:28 DC 07/31/20 20:09 Olanzapine (ZyPREXA) 15 mg QHS PO 08/01/20 21:00 08/03/20 11:57 DC 08/02/20 20:18 Olanzapine (ZyPREXA) 20 mg QHS PO 08/03/20 21:00 08/04/20 20:26 Trazodone HCl (Desyrel) 50 mg QHSP PRN PO INSOMNIA 07/25/20 18:05 08/04/20 20:25 Allergies Coded Allergies: No Known Allergies (Unverified , 07/24/20) COLEEN NINO MD Aug 05, 2020 08:49
[2020-08-05] MEDS: NICOTINE POLACRILEX 2 MG GUM PO PRN ×2 (11:08→16:49)
[2020-08-05 16:09] VITALS: BP 136/69
[2020-08-05] MEDS: traZODone 50 MG TAB PO PRN (20:26)
[2020-08-05] MEDS: OLANZapine 10 MG TAB PO SCH (20:26)
[2020-08-06 06:14] VITALS: BP 103/51
[2020-08-06 16:04] VITALS: BP 110/74
[2020-08-06] MEDS: OLANZapine 10 MG TAB PO SCH (20:06)
[2020-08-06] MEDS: traZODone 50 MG TAB PO PRN (20:06)
[2020-08-07 06:22] VITALS: BP 115/58
[2020-08-07 16:09] VITALS: BP 147/82
[2020-08-07] MEDS: OLANZapine 10 MG TAB PO SCH (21:17)
[2020-08-07] MEDS: traZODone 50 MG TAB PO PRN (21:17)
[2020-08-07] MEDS: NICOTINE POLACRILEX 2 MG GUM PO PRN (21:17)
[2020-08-08 06:33] VITALS: BP 119/71
--- NOTE | 2020-08-08 10:22 | MHIPNPDOC ---
[facility] Progress Note Progress Note DATE OF SERVICE: 08/08/20 HISTORY: Spoke with [facility] today concerning transfer as per behavioral health at [place]. Apparently beds are full, and they will be contacting our corporate planner when bed is available VITAL SIGNS: See below. NEW TEST RESULTS: None. CURRENT MEDICATIONS: See below. MENTAL STATUS EXAMINATION: Patient is a 19-year old male, who is 6. She is staying in his room, will not participate in groups will not eat with other patients, continues to think people are talking about him laughing about him and has not improved with neuroleptics. Speech: Is, quiet mumbling. Language skills are essentially intact. Thought processes including: People laughing when he walks in the room people listening to him, people threatening him Thought content: As above. Abstract reasoning, and computation:. Poor abstraction. Description of associations: No loose association. Description of abnormal or psychotic thoughts:. As above, denies hallucinations, but flagrantly paranoid and possibly having auditory hallucination. Judgment: Poor Insight:, Poor. Orientation: 3. Recent and remote memory: Intact. Attention span and concentration: Intact. Language:. No disturbance. Fund of knowledge: Limited. Mood: Euthymic. Affect:, Suspicious. DIAGNOSES: 1., Paranoid disorder. . . ASSESSMENT: As above MANAGEMENT PLAN:. As per [place] transfer to [facility] for eventual travel to [facility]. TIME SPENT: 40 minutes. Vital Signs Vital Signs Date Time Temp Pulse Resp B/P (MAP) Pulse Ox O2 Delivery O2 Flow Rate FiO2 08/08/20 06:33 98.7 95 16 119/71 (87) 95 Room Air Current Medications Current Medications Medications (Trade) Dose Ordered Sig/Catracho Route PRN Reason Start Time Stop Time Status Last Admin Dose Admin Acetaminophen (Tylenol Tab) 650 mg Q6HP PRN PO HEADACHE or DISCOMFORT 07/25/20 18:05 Al Hydrox/Mg Hydrox/Simethicone (Mylanta) 30 ml Q4HP PRN PO HEARTBURN/INDIGESTION 07/25/20 18:05 Home Med (Med Rec Complete!) ASDIRECTED XX 07/25/20 13:15 07/25/20 13:13 DC Lorazepam (Ativan) 1 mg STAT STAT PO 07/24/20 19:29 07/24/20 19:30 DC 07/24/20 19:46 Magnesium Hydroxide (Milk Of Magnesia) 30 ml DAILYPRN PRN PO CONSTIPATION 07/25/20 18:05 Nicotine (Nicorette) 2 mg Q4HP PRN PO NICOTINE WITHDRAWAL 07/26/20 11:30 08/07/20 21:17 Olanzapine (ZyPREXA) 5 mg QHS PO 07/27/20 21:00 07/28/20 09:31 DC 07/27/20 21:36 Olanzapine (ZyPREXA) 10 mg QHS PO 07/28/20 21:00 08/01/20 13:28 DC 07/31/20 20:09 Olanzapine (ZyPREXA) 15 mg QHS PO 08/01/20 21:00 08/03/20 11:57 DC 08/02/20 20:18 Olanzapine (ZyPREXA) 20 mg QHS PO 08/03/20 21:00 08/07/20 21:17 Trazodone HCl (Desyrel) 50 mg QHSP PRN PO INSOMNIA 07/25/20 18:05 08/07/20 21:17 Allergies Coded Allergies: No Known Allergies (Unverified , 07/24/20) COLEEN NINO MD Aug 08, 2020 10:22
[2020-08-08] MEDS: NICOTINE POLACRILEX 2 MG GUM PO PRN (11:22)
[2020-08-08] MEDS: OLANZapine 10 MG TAB PO SCH (20:26)
[2020-08-08] MEDS: traZODone 50 MG TAB PO PRN (20:26)
[2020-08-08] MEDS: MOM 30ML SUSPENSION UDC PO PRN (20:26)
[2020-08-09] MEDS: NICOTINE POLACRILEX 2 MG GUM PO PRN (10:41)
--- NOTE | 2020-08-09 13:56 | MHIPNPDOC ---
[facility] Progress Note Progress Note DATE OF SERVICE: HISTORY: Spoke with [facility] yesterday concerning transfer as per behavioral health at [place]. Apparently beds are full, and they will be cont acting our account planner when bed is available VITAL SIGNS: See below. NEW TEST RESULTS: None. CURRENT MEDICATIONS: See below. MENTAL STATUS EXAMINATION: Patient is a 19-year old male, who is 6. She is staying in his room, will not participate in groups will not eat with other patients, continues to think people are talking about him laughing about him and has not improved with neuroleptics. Speech: Is, quiet mumbling. Language skills are essentially intact. Thought processes including: People laughing when he walks in the room people listening to him, people threatening him Thought content: As above. Abstract reasoning, and computation:. Poor abstract ion. Description of associations: No loose association. Description of abnormal or psychotic thoughts:. As above, denies hallucinations, but flagrantly paranoid and possibly having auditory hallucination. Judgment: Poor Insight:, Poor. Orientation: 3. Recent and remote memory: Intact. Attention span and concentration: Intact. Language:. No disturbance. Fund of knowledge: Limited. Mood: Euthymic. Affect:, Suspicious. DIAGNOSES: 1., Paranoid disorder. . . ASSESSMENT: As above MANAGEMENT PLAN:. As per [place] transfer to [facility] for eventual travel to [place] [facility]. TIME SPENT: 40 minutes. Vital Signs Vital Signs Date Time Temp Pulse Resp B/P (MAP) Pulse Ox O2 Delivery O2 Flow Rate FiO2 08/08/20 06:33 98.7 95 16 119/71 (87) 95 Room Air Current Medications Current Medications Medications (Trade) Dose Ordered Sig/Catracho Route PRN Reason Start Time Stop Time Status Last Admin Dose Admin Acetaminophen (Tylenol Tab) 650 mg Q6HP PRN PO HEADACHE or DISCOMFORT 07/25/20 18:05 Al Hydrox/Mg Hydrox/Simethicone (Mylanta) 30 ml Q4HP PRN PO HEARTBURN/INDIGESTION 07/25/20 18:05 Home Med (Med Rec Complete!) ASDIRECTED XX 07/25/20 13:15 07/25/20 13:13 DC Lorazepam (Ativan) 1 mg STAT STAT PO 07/24/20 19:29 07/24/20 19:30 DC 07/24/20 19:46 Magnesium Hydroxide (Milk Of Magnesia) 30 ml DAILYPRN PRN PO CONSTIPATION 07/25/20 18:05 08/08/20 20:26 Nicotine (Nicorette) 2 mg Q4HP PRN PO NICOTINE WITHDRAWAL 07/26/20 11:30 08/09/20 10:41 Olanzapine (ZyPREXA) 5 mg QHS PO 07/27/20 21:00 07/28/20 09:31 DC 07/27/20 21:36 Olanzapine (ZyPREXA) 10 mg QHS PO 07/28/20 21:00 08/01/20 13:28 DC 07/31/20 20:09 Olanzapine (ZyPREXA) 15 mg QHS PO 08/01/20 21:00 08/03/20 11:57 DC 08/02/20 20:18 Olanzapine (ZyPREXA) 20 mg QHS PO 08/03/20 21:00 08/08/20 20:26 Trazodone HCl (Desyrel) 50 mg QHSP PRN PO INSOMNIA 07/25/20 18:05 08/08/20 20:26 Allergies Coded Allergies: No Known Allergies (Unverified , 07/24/20) COLEEN NINO MD Aug 09, 2020 13:56
[2020-08-09 16:45] VITALS: BP 149/77
[2020-08-09] MEDS: MOM 30ML SUSPENSION UDC PO PRN (18:16)
[2020-08-09] MEDS: traZODone 50 MG TAB PO PRN (20:02)
[2020-08-09] MEDS: OLANZapine 10 MG TAB PO SCH (20:02)
--- NOTE | 2020-08-10 06:35 | MHIPNPDOC ---
[facility] Progress Note Progress Note DATE OF SERVICE: 08/10/20 HISTORY: Spoke with [facility] day before yesterday concerning transfer as per [facility]. Apparently beds are full, and they will be contacting our associate financial planner when bed is available. Pt remains seclusive and non participatory VITAL SIGNS: See below. NEW TEST RESULTS: None. CURRENT MEDICATIONS: See below. MENTAL STATUS EXAMINATION: Patient is a 19-year old male, who is 6. She is staying in his room, will not participate in groups will not eat with other patients, continues to think people are talking about him laughing about him and has not improved with neuroleptics. Speech: Is, quiet mumbling. Language skills are essentially intact. Thought processes including: People laughing when he walks in the room people listening to him, people threatening him Thought content: As above. Abstract reasoning, and computation:. Poor abstraction. Description of associations: No loose association. Description of abnormal or psychotic thoughts:. As above, denies hallucinations, but flagrantly paranoid and possibly having auditory hallucination. Judgment: Poor Insight:, Poor. Orientation: 3. Recent and remote memory: Intact. Attention span and concentration: Intact. Language:. No disturbance. Fund of knowledge: Limited. Mood: Euthymic. Affect:, Suspicious. DIAGNOSES: 1., Paranoid disorder. . . ASSESSMENT: As above MANAGEMENT PLAN:. As per [facility] to [facility] for eventual travel to [facility]. TIME SPENT: 40 minutes. Vital Signs Vital Signs Date Time Temp Pulse Resp B/P (MAP) Pulse Ox O2 Delivery O2 Flow Rate FiO2 08/09/20 16:45 98.4 77 18 149/77 (101) 08/08/20 06:33 95 Room Air Current Medications Current Medications Medications (Trade) Dose Ordered Sig/Catracho Route PRN Reason Start Time Stop Time Status Last Admin Dose Admin Acetaminophen (Tylenol Tab) 650 mg Q6HP PRN PO HEADACHE or DISCOMFORT 07/25/20 18:05 Al Hydrox/Mg Hydrox/Simethicone (Mylanta) 30 ml Q4HP PRN PO HEARTBURN/INDIGESTION 07/25/20 18:05 Home Med (Med Rec Complete!) ASDIRECTED XX 07/25/20 13:15 07/25/20 13:13 DC Lorazepam (Ativan) 1 mg STAT STAT PO 3/7/21 19:29 07/24/20 19:30 DC 07/24/20 19:46 Magnesium Hydroxide (Milk Of Magnesia) 30 ml DAILYPRN PRN PO CONSTIPATION 07/25/20 18:05 08/09/20 18:16 Nicotine (Nicorette) 2 mg Q4HP PRN PO NICOTINE WITHDRAWAL 07/26/20 11:30 08/09/20 10:41 Olanzapine (ZyPREXA) 5 mg QHS PO 07/27/20 21:00 07/28/20 09:31 DC 07/27/20 21:36 Olanzapine (ZyPREXA) 10 mg QHS PO 07/28/20 21:00 08/01/20 13:28 DC 07/31/20 20:09 Olanzapine (ZyPREXA) 15 mg QHS PO 08/01/20 21:00 08/03/20 11:57 DC 08/02/20 20:18 Olanzapine (ZyPREXA) 20 mg QHS PO 08/03/20 21:00 08/09/20 20:02 Trazodone HCl (Desyrel) 50 mg QHSP PRN PO INSOMNIA 07/25/20 18:05 08/09/20 20:02 Allergies Coded Allergies: No Known Allergies (Unverified , 07/24/20) COLEEN NINO MD Aug 10, 2020 06:35
[2020-08-10 06:44] VITALS: BP 111/56
[2020-08-10] MEDS: NICOTINE POLACRILEX 2 MG GUM PO PRN ×2 (13:14→17:27)
[2020-08-10 16:56] VITALS: BP 154/91
[2020-08-10] MEDS: MOM 30ML SUSPENSION UDC PO PRN (21:01)
[2020-08-10] MEDS: traZODone 50 MG TAB PO PRN (21:02)
[2020-08-10] MEDS: OLANZapine 10 MG TAB PO SCH (21:02)
[2020-08-11 06:53] VITALS: BP 136/65
--- NOTE | 2020-08-11 08:01 | MHIPNPDOC ---
[facility] Progress Note Progress Note DATE OF SERVICE: 08/11/20 . HISTORY: Pt remains seclusive and non participatory. Discussions with [facility] have concluded that [facility] [place] and proper disposition will occur. 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 NEW TEST RESULTS: None. CURRENT MEDICATIONS: See below. MENTAL STATUS EXAMINATION: Patient is a 19-year old male, who is 6. She is staying in his room, will not participate in groups will not eat with other patients, continues to think people are talking about him laughing about him and has not improved with neuroleptics. Speech: Is, quiet mumbling. Language skills are essentially intact. Thought processes including: People laughing when he walks in the room people listening to him, people threatening him Thought content: As above. Abstract reasoning, and computation:. Poor abstraction. Description of associations: No loose association. Description of abnormal or psychotic thoughts:. As above, denies hallucinations, but flagrantly paranoid and possibly having auditory hallucination. Judgment: Poor Insight:, Poor. Orientation: 3. Recent and remote memory: Intact. Attention span and concentration: Intact. Language:. No disturbance. Fund of knowledge: Limited. Mood: Euthymic. Affect:, Suspicious. DIAGNOSES: 1., Paranoid disorder. Paranoid Personality . . ASSESSMENT: As above MANAGEMENT PLAN:. As per [place] transfer to [facility] for eventual travel to [place] longterm. TIME SPENT: 25 minutes. MANAGEMENT PLAN: . TIME SPENT: minutes. Vital Signs Vital Signs Date Time Temp Pulse Resp B/P (MAP) Pulse Ox O2 Delivery O2 Flow Rate FiO2 08/11/20 06:53 98.0 73 14 136/65 (88) 97 Room Air Current Medications Current Medications Medications (Trade) Dose Ordered Sig/Catracho Route PRN Reason Start Time Stop Time Status Last Admin Dose Admin Acetaminophen (Tylenol Tab) 650 mg Q6HP PRN PO HEADACHE or DISCOMFORT 07/25/20 18:05 Al Hydrox/Mg Hydrox/Simethicone (Mylanta) 30 ml Q4HP PRN PO HEARTBURN/INDIGESTION 07/25/20 18:05 Home Med (Med Rec Complete!) ASDIRECTED XX 07/25/20 13:15 07/25/20 13:13 DC Lorazepam (Ativan) 1 mg STAT STAT PO 07/24/20 19:29 07/24/20 19:30 DC 07/24/20 19:46 Magnesium Hydroxide (Milk Of Magnesia) 30 ml DAILYPRN PRN PO CONSTIPATION 07/25/20 18:05 08/10/20 21:01 Nicotine (Nicorette) 2 mg Q4HP PRN PO NICOTINE WITHDRAWAL 07/26/20 11:30 08/10/20 17:27 Olanzapine (ZyPREXA) 5 mg QHS PO 07/27/20 21:00 07/28/20 09:31 DC 07/27/20 21:36 Olanzapine (ZyPREXA) 10 mg QHS PO 07/28/20 21:00 08/01/20 13:28 DC 07/31/20 20:09 Olanzapine (ZyPREXA) 15 mg QHS PO 08/01/20 21:00 08/03/20 11:57 DC 08/02/20 20:18 Olanzapine (ZyPREXA) 20 mg QHS PO 08/03/20 21:00 08/10/20 21:02 Trazodone HCl (Desyrel) 50 mg QHSP PRN PO INSOMNIA 07/25/20 18:05 08/10/20 21:02 Allergies Coded Allergies: No Known Allergies (Unverified , 07/24/20) COLEEN NINO MD Aug 11, 2020 08:01
[2020-08-11] MEDS: NICOTINE POLACRILEX 2 MG GUM PO PRN ×2 (11:40→16:12)
[2020-08-11 18:25] VITALS: BP 143/77
[2020-08-11] MEDS: traZODone 50 MG TAB PO PRN (19:58)
[2020-08-11] MEDS: OLANZapine 10 MG TAB PO SCH (19:59)
[2020-08-12] MEDS ORDERED: OLAN10TA2 PO (06:02)
[2020-08-12 06:21] VITALS: BP 142/70
--- NOTE | 2020-08-12 14:13 | MHDSPDOC ---
[facility] Discharge Summary Discharge Summary DATE OF ADMISSION: Jul 25, 2020 at 18:03 DATE OF DISCHARGE: Aug 12, 2020 at 11:00 DISCHARGE DIAGNOSES: 1. Paranoid disorder. 2., Paranoid personality. REASON FOR ADMISSION: He states his company is trying to kill him. He went AWOL because "they were trying to do. 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 He states people are talking behind his back. He states he feels uneasy and weird. He states when they picked him up after AWOL. He thought they were going to hit him. He has charges of desertion and sexual assault underage drinking. He has never been hospitalized. He has never been on any psychiatric medications. He has never seen a psychiatrist. He states he worked in [place] in [email or web address] and that company kept him but they always "thought I was tripping". He states he hears weird noises, electronic sounds. Denies any thought insertion, ideas of reference, but states "people can read my mind." He states his father had anxiety and has trouble being around people and his mother has schizophrenia. His legal history is negative. His medical history is negative. Surgical history is negative. His neurological history is negative. He is single and he doesn't want to go back to [facility]. He wants to go to [place]. CONSULTANTS INVOLVED: None TREATMENT AND PROGRESS ON THE UNIT : No progress despite us of neuroleptics HOSPITAL COURSE: Remained seclusive, stayed in his room ate in his room. bored DISCHARGE ASSESSMENT: Paranoid Disorder, Paranoid personality MENTAL STATUS EXAMINATION ON DISCHARGE: Speech: Is, quiet mumbling. Language skills are essentially intact. Thought processes including: People laughing when he walks in the room thinks people may be listening to him, Thought content: As above. Abstract reasoning, and computation:. Poor abstraction. Description of associations: No loose association. Description of abnormal or psychotic thoughts:. As above, denies hallucinations, but flagrantly paranoid and possibly having auditory hallucination. Judgment: Poor Insight:, Poor. Orientation: 3. Recent and remote memory: Intact. Attention span and concentration: Intact. Language:. No disturbance. Fund of knowledge: Limited. Mood: Euthymic. Affect:, Suspicious. MEDICATIONS ON DISCHARGE: - Olanzapine 20 mg hs for paranoid thought PLAN/FOLLOWUP ARRANGEMENTS: as per chain of command The amount of time spent in the coordination of care for this patient was approximately 30 minutes. ETOH/Disorder Med Rx ETOH/DRUG DISORDER RX: N/A Vital Signs/I&Os Vital Signs Date Time Temp Pulse Resp B/P (MAP) Pulse Ox O2 Delivery O2 Flow Rate FiO2 08/12/20 06:21 98.7 75 15 142/70 (94) 99 Room Air Medications Scheduled Olanzapine (Olanzapine) 10 Mg Tablet, 20 MG PO QHS for Paranoia, #14 Allergies Coded Allergies: No Known Allergies (Unverified , 07/24/20) COLEEN NINO MD Aug 12, 2020 14:13
== END 2020-08-12 11:00 | disposition home or self-care (01) | DRG 885 ==
LOC: M ED 17:24 → M ED INP 07-25 18:03 → M PSY 07-25 23:45
PROVIDERS: ADMIT Psychiatry & Neurology Child & Adolescent Psychiatry; ATTEND Psychiatry & Neurology Child & Adolescent Psychiatry
DX: F22 Delusional disorders (principal); R45.851 Suicidal ideations; Z81.8 Family history of other mental and behavioral disorders; F17.200 Nicotine dependence, unspecified, uncomplicated; F43.9 Reaction to severe stress, unspecified; F32.9 Major depressive disorder, single episode, unspecified; F60.0 Paranoid personality disorder; Z56.89 Other problems related to employment; Z20.822 Contact with and (suspected) exposure to COVID-19